=== PATIENT | male | born 1955 | race Caucasian/White ===

== ENCOUNTER → 2018-04-22 12:36 | Outpatient (CLI) | payer MEDICARE ==
[~2018-04-22] VITALS: Ht 170.2 cm; Wt 165.1 kg
[2018-04-22 14:40] VITALS: Ht 170.2 cm; Wt 165.1 kg
== END | disposition home or self-care (01) ==
LOC: D.FANS 12:36
DX: E11.65 Type 2 diabetes mellitus with hyperglycemia (principal)

== ENCOUNTER 2019-04-14 21:00 | Observation (INO) | payer MEDICARE ==
[~2019-04-14] VITALS: Ht 170.2 cm; Wt 163.6 kg
--- NOTE | ~2019-04-14 | ST ---
PATIENT:NICOLAS BRICE MEDICAL RECORD: [id number] SEX: M LOCATION:D. D.211 ORDER #: ADMISSION DATE: 04/14/19 AGE OF PATIENT: 63 REFERRING PHYSICIAN: INTERPRETING PHYSICIAN: JONATHAN BALES MD DATE OF SERVICE: 04/15/2019 PROCEDURE: Nuclear stress test. INDICATION: Angina and coronary artery disease, shortness of breath, dyspnea on exertion. He was exercised on standard Lexiscan protocol with 28 mCi of sestamibi injected at peak stress, 9 mCi used previously for rest images. FINDINGS: Gated SPECT reveals preserved ejection fraction at 61% with good wall motion and thickening and brightening throughout all segments. SPECT imaging Cardiolite was used as myocardial fusion agent. There is homogeneous uptake throughout all segments at rest and stress with no evidence of inducible ischemia or previous infarction. OVERALL IMPRESSION: 1. This is a normal nuclear stress test with no evidence of inducible ischemia or previous infarction. 2. Gated SPECT reveals a preserved ejection fraction at 61%. In this patient with ongoing symptomatology, the current scan does not suggest the presence of hemodynamically significant coronary artery disease. Evaluate noncardiac etiology of chest pain. TRANSINT:[id number] Voice Confirmation ID: [id number] DOCUMENT ID: [id number] JONATHAN BALES MD CC: [id number] DICTATION DATE: 04/15/19 1712 COTTON AGENT: 04/16/19 0001 ADM IN [place] [id number] [place] [id number]
--- NOTE | ~2019-04-14 | EC ---
PATIENT:NICOLAS BRICE DATE OF SERVICE: 04/14/19 SEX: M MEDICAL RECORD: [id number] DATE OF : 55 LOCATION:D.M2 D.211 AGE OF PATIENT: 63 ADMISSION DATE: 04/14/19 REFERRING PHYSICIAN: INTERPRETING PHYSICIAN: JONATHAN HOPSON MD ECHOCARDIOGRAM REPORT ECHO CHARGES 4 ECHO COMPLETE Date: 04/15/19 CLINICAL DIAGNOSIS: CARDIOMEGALY ECHOCARDIOGRAPHIC MEASUREMENTS (adult normal given) AC root (d.<3.7cm) 2.6 cm LV Septum d (<1.2 cm> 1.4 cm Valve Excursion 2.0 cm LV Septum (systole) 1.6 cm Left Atria (s.<4.0cm> 4.5 cm LVPW d(<1.2cm) 1.3 cm RV (d.<2.3cm) cm LVPW (sytole) 1.4 cm LV diastole(<5.6CM) 5.1 cm MV E-F(>70mm/sec) cm LV systole 3.8 cm LVOT Diameter 1.8 cm MV exc.(>10mm) cm Est.ejection fraction (50-75%) % DOPPLER: LVIT cm/sec A cm/sec E cm/sec LA cm/sec RVSP 17.7 mmHg LVOT cm/sec AOP1/2T m/s Asc. Ao cm/sec RVOT 80 cm/sec RA cm/sec PA 90 cm/sec AV Gradient Peak mmHg AV Mean mmHg AV Area cm MV Gradient Peak mmHg MV Mean mmHg MV Area cm COMMENTS: Baseball Glove Stuffer: Laura AKINS Transitional Care Liaison: Stiven Hopson TAPE# PACS Pericardial Effusion N DATE OF SERVICE: 04/15/2019 PROCEDURE: Echocardiogram. FINDINGS: 1. Left ventricular chamber size is within normal limits. Left ventricular systolic function is normal. Overall ejection fraction estimated at 55%. 2. Left atrium is enlarged at 4.5 cm. Right atrium and right ventricular chamber sizes are within normal limits. 3. Valvular structures have normal structure and motion. ECHOCARDIOGRAM REPORT [id number] NICOLAS BRCIE 4. Doppler interrogation reveals no significant valvular insufficiency or stenosis. 5. No evidence of pericardial effusion or left ventricular thrombus. TRANSINT:[id number] Voice Confirmation ID: [id number] DOCUMENT ID: [id number] JONATHAN HOPSON MD CC: [id number] DICTATION DATE: 04/15/19 1314 FISHERY BIOLOGIST: 04/15/19 1323 [facility]M [facility] [address] [facility] [address] [place], [facility]
[2019-04-14] MEDS ORDERED: ZOCOR10 MG PO (21:09)
[2019-04-14] MEDS ORDERED: COZAAR25 MG PO (21:09)
[2019-04-14] MEDS ORDERED: TENORMIN25 MG PO (21:09)
[2019-04-14] MEDS ORDERED: ASPIRIN81 MG PO (21:09)
[2019-04-14] MEDS ORDERED: NOVOLIN 70/30 110 ML SC (21:10)
[2019-04-14] MEDS ORDERED: PAIN MEDICINE (21:10)
[2019-04-14 21:31] VITALS: BP 145/60
[2019-04-14 21:31] LABS: BASOPHILS 0 % (0-2); EOSINOPHILS 1.5 % (0-7); HEMATOCRIT 44.9 % (42.0-54.0); HEMOGLOBIN 15.3 g/dL (13.5-17.5); IMMATURE GRANULOCYTES 0.3 % (0-5); LYMPHOCYTES 35.9 % (15-50); MCH 32.4 pg (26.0-34.0); MCHC 34.1 g/dL (31.0-37.0); MCV 95.1 fL (80.0-100.0); MEAN PLATELET VOLUME 10.3 fL (7.4-10.4); MONOCYTES 8.1 % (2-11); NEUTROPHILS 54.2 % (40-80); RBC 4.72 10x6/uL (4.20-6.10); RDW 13.6 % (11.5-14.5)
[2019-04-14 21:40] LABS: PLATELET COUNT 202 10x3/uL (130-400)
[2019-04-14 21:44] LABS: INR 0.93 (0.85-1.17)
[2019-04-14 21:45] LABS: APTT 27.2 SECONDS (22.8-39.4)
--- NOTE | 2019-04-14 21:45 | NUR ---
BLANKET PROVIDED FOR PT COMFORT AT THIS TIME. FAMILY AT BEDSIDE. RESPIRATIONS EVEN, NO LONGER USING ACCESSORY MUSCLES. 02 AT 3L PER NC, SAT 97%.
[2019-04-14 22:00] VITALS: BP 132/49
[2019-04-14 22:00] LABS: ALBUMIN 3.2 g/dL (3.4-5.0); ALKALINE PHOSPHATASE 60 U/L (46-116); ALT (SGPT) 26 U/L (10-68); BILIRUBIN - TOTAL 0.65 mg/dL (0.2-1.3); CALC OSMOLALITY 278 mosm/kg (275-300); CARBON DIOXIDE 35.1 mmol/L (21.0-32.0); CHLORIDE - SERUM 100 mmol/L (98-107); CREATININE - SERUM 1.1 mg/dL (0.6-1.3); GLUCOSE 114 mg/dL (74-106); POTASSIUM - SERUM 3.8 mmol/L (3.5-5.1); PROTEIN - SERUM 6.9 g/dL (6.4-8.2); SODIUM 139 mmol/L (136-145); UREA NITROGEN 13 mg/dL (7-18); eGFR NON AFRICAN AMERICAN 72 mL/min (90-120)
[2019-04-14 22:10] LABS: CKMB 3.8 U/L (0.0-3.6); CREATINE KINASE 401 UL (21-232); MAGNESIUM - SERUM 1.8 mg/dL (1.8-2.4); TROPONIN-I < 0.017 ng/mL (0.000-0.060)
--- NOTE | 2019-04-14 22:20 | NUR ---
PT SITTING UP IN BED WITH EYES OPEN, TV ON, FAMILY AT BEDSIDE. RESPIRATIONS EVEN AND UNLABORED. 3L O2 PER NC, O2 SAT 98%. DENIES PAIN OR NEEDS AT THIS TIME.
[2019-04-14 22:30] VITALS: BP 142/43
[2019-04-14 23:30] VITALS: BP 131/39
[2019-04-15] MEDS ORDERED: NOVOLIN 70/30 110 ML SC (00:46)
[2019-04-15] MEDS ORDERED: BASAGLAR K100 UNIT/1 SC (00:47)
[2019-04-15] MEDS ORDERED: TENORMIN50 MG PO (00:48)
[2019-04-15] MEDS ORDERED: PROTONIX40 MG PO (00:49)
[2019-04-15] MEDS ORDERED: METAMUCIL PACKE1 PKT PO (00:50)
[2019-04-15] MEDS ORDERED: COLACE100 MG PO (00:50)
[2019-04-15] MEDS ORDERED: DILAUDID4 MG PO (00:51)
[2019-04-15] MEDS ORDERED: LASIX40 MG PO (00:53)
[2019-04-15] MEDS ORDERED: ALBUTEROL SULF8.5 GM INH (00:54)
[2019-04-15 01:05] VITALS: BP 117/60
[2019-04-15 02:25] VITALS: BP 117/60; Ht 170.2 cm; Wt 163.6 kg
[2019-04-15 05:36] VITALS: BP 112/57
[2019-04-15 06:33] LABS: BASOPHILS 0.1 % (0-2); EOSINOPHILS 1.2 % (0-7); IMMATURE GRANULOCYTES 0.2 % (0-5); LYMPHOCYTES 25.3 % (15-50); MCH 31.7 pg (26.0-34.0); MCHC 32.6 g/dL (31.0-37.0); MEAN PLATELET VOLUME 10.5 fL (7.4-10.4); MONOCYTES 15.4 % (2-11); NEUTROPHILS 57.8 % (40-80); PLATELET COUNT 204 10x3/uL (130-400); RBC 4.41 10x6/uL (4.20-6.10); RDW 13.8 % (11.5-14.5); WBC 9.8 10x3/uL (4.8-10.8)
[2019-04-15 06:34] LABS: MCV 97.5 fL (80.0-100.0)
[2019-04-15 07:08] LABS: CALCIUM 8.6 mg/dL (8.5-10.1); CARBON DIOXIDE 35.3 mmol/L (21.0-32.0); CHLORIDE - SERUM 103 mmol/L (98-107); PHOSPHOROUS 6.5 mg/dL (2.5-4.9); POTASSIUM - SERUM 3.9 mmol/L (3.5-5.1); SODIUM 140 mmol/L (136-145); UREA NITROGEN 13 mg/dL (7-18); eGFR NON AFRICAN AMERICAN 80 mL/min (90-120)
[2019-04-15 07:11] LABS: CALC OSMOLALITY 276 mosm/kg (275-300); TROPONIN-I < 0.017 ng/mL (0.000-0.060)
--- NOTE | 2019-04-15 07:39 | NUR ---
GLUCOSE 59. OJ GIVEN. WILL MONITOR.
[2019-04-15 08:00] VITALS: BP 134/49
[2019-04-15] MEDS ORDERED: HUMULIN R100 U/ML SQ (09:35)
[2019-04-15 11:37] VITALS: BP 106/52
--- NOTE | 2019-04-15 13:12 | NUR ---
LEAVING TO NM BY W/C FOR STRESS TEST.
--- NOTE | 2019-04-15 16:00 | NUR ---
LEAVING FOR NM FOR 2ND HALF STRESS TEST.
--- NOTE | 2019-04-15 19:27 | NUR ---
RECEIVED BEDSIDE REPORT. PATIENT IS ALERT AND ORIENTED, SITTING IN HIS WHEELCHAIR. RESPIRATIONS ARE EVEN AND UNLABORED. NO S/S OF DISTRESS. NO C/O PAIN. VISITORS AT BEDSIDE. DENIES NEEDS. CALL LIGHT WITHIN REACH. WILL CPOC.
[2019-04-15 20:00] VITALS: BP 133/55
[2019-04-16] VITALS: BP 121/51
[2019-04-16 04:00] VITALS: BP 189/54
[2019-04-16 04:46] LABS: ANION GAP 8.4 mmol/L (8-16); CALCIUM 8.5 mg/dL (8.5-10.1); CARBON DIOXIDE 36.5 mmol/L (21.0-32.0); CREATININE - SERUM 1.1 mg/dL (0.6-1.3)
[2019-04-16 04:54] LABS: POTASSIUM - SERUM 4.9 mmol/L (3.5-5.1)
[2019-04-16 09:17] VITALS: BP 134/45
[2019-04-16 12:22] VITALS: BP 133/55
--- NOTE | 2019-04-16 12:23 | HP ---
PATIENT: NICOLAS BRICE MEDICAL RECORD: [id number] ACCOUNT: [id number] LOCATION:[address] : 55 ADMISSION DATE: 04/14/19 PCP: DAVID OWEN DO HISTORY AND PHYSICAL EXAMINATION DIAGNOSES: 1. Unstable angina class IV. 2. Shortness of breath, dyspnea on exertion. 3. Coronary artery disease. 4. Status post coronary bypass graft surgery in 2011. 5. Hypertension. 6. Hyperlipidemia. 7. Chronic obstructive pulmonary disease. 8. Obesity. 9. Insulin-dependent diabetes. HISTORY OF PRESENT ILLNESS: This is a 63-year-old gentleman with a past history of coronary artery disease, status post coronary artery bypass graft surgery 7 years ago. For 2 weeks, he has had increasing chest pressure as well as shortness of breath. He presents with severe worsening chest discomfort at rest like that of his previous angina prior to the bypass surgery. Shortness of breath is very significant as well. He cannot even walk across the room without being extremely short of breath. He has a history of COPD as well for which he is on an inhaler. This is not changed. He has not had a productive cough or fever. He has history of hypertension for which he is on atenolol and losartan. Hyperlipidemia, on Zocor. He is an insulin-dependent diabetic. PHYSICAL EXAMINATION: GENERAL APPEARANCE: Well-nourished, well-developed, appears stated age. Level of distress, comfortable. PSYCHIATRIC: Mental status, alert, normal affect. Orientation, oriented to time, place and person. EYES: Lids and conjunctiva, noninjected. No discharge, no pallor. ENT: Lips, teeth, gums, normal dentition. Oropharynx, no cyanosis, no pallor. NECK: Carotid arteries, bilateral normal upstroke, no bruits, no thrills. JUGULAR VEINS: No jugular venous pressure or distention. CERVICAL LYMPH NODES: Nontender, nonenlarged. THYROID: Not enlarged. Nontender. No nodules. LUNGS: Respiratory effort, unlabored. CHEST: Normal curvature. No thoracic deformity. No chest wall tenderness. Percussion, resonant. Auscultation, clear. No wheezes, no rales, no rhonchi. CARDIOVASCULAR: Precordial exam, nondisplaced. No heaves or pericardial thrills. Rate and rhythm, regular. Heart sounds, normal S1, normal S2. No S3, no gallop, no rub. Systolic murmur, not heard. Diastolic murmur, not heard. EXTREMITIES: No cyanosis, no edema. Peripheral pulses, full and equal in all extremities, except as noted. No bruits appreciated. ABDOMEN: Soft, nondistended. Normal aorta. No bruit. Nontender. No masses. Liver, nontender, no hepatomegaly. Spleen, nontender, no splenomegaly. MUSCULOSKELETAL: No joint tenderness. No joint swelling. No erythema. NEUROLOGICAL: Normal gait, normal strength, normal tone. SKIN: Warm and dry. OVERALL IMPRESSION: 1. Class IV anginal symptomatology. No acute changes on his EKG. Troponin is normal. We will risk stratify with stress testing, Cardiolite imaging. HISTORY AND PHYSICAL [id number] NICOLAS BRICE 2. Shortness of breath, dyspnea on exertion. We will get an echocardiogram to evaluate his overall LV function. We will give him Lasix. As he has crackles on exam even though chest x-ray did not show overt pulmonary edema, this is most likely contributing to his shortness of breath and dyspnea on exertion. Further care depends upon findings of these studies. TRANSINT:[id number] Voice Confirmation ID: [id number] DOCUMENT ID: [id number] JONATHAN BALES MD at 1223 CC: [id number] DICTATION DATE: 04/15/19823 ASTRONOMY DEPARTMENT CHAIR: 04/15/19 0849 ADM IN [facility] [address] [place] [id number]
--- NOTE | 2019-04-16 12:43 | NUR ---
PER PATIENT REQUEST, I CALLED HIS JOSE AND JULIETTE TO [facility]. SPOKE WITH CHIOMA-TRE.
[2019-04-16] MEDS ORDERED: LASIX40 MG PO (12:50)
[2019-04-16] MEDS ORDERED: K-TAB10 MEQ PO (12:51)
--- NOTE | 2019-04-16 13:30 | NUR ---
IV AND TELEMETRY DCD. DC PLANS GIVEN. UNDERSTANDING VOICED. LEAVING HOSP WITH BY W/C.
--- NOTE | 2019-04-16 18:45 | MORECARE ---
CASE MANAGEMENT DISCHARGE SUMMARY PATIENT: NICOLAS BRICE UNIT: [id number] ADM DATE: 04/14/19 AGE: 63 : 55 SEX: M ROOM/BED: D.2118 AUTHOR: THOMAS KNAPP PHYSICIAN: REFERRING PHYSICIAN: JONATHAN BALES MD DATE OF SERVICE: 04/16/19 Discharge Plan Patient Name: NICOLAS BRICE [facility] [facility] 1955 Planned Disposition: Home Anticipated Discharge Date: 04/16/19 Discharge Date: 04/16/2019 Expected LOS: 2 Initial Reviewer: [email or web address] Initial Review Date: 04/15/2019 Generated: 04/16/19 7:44 pm Patient Name: NICOLAS BRICE Page [id number] at 1845 All edits/amendments must be made on the electronic document DICTATION DATE: 04/16/191843 GEOPHYSICAL SUPPORT SPECIALIST: BREANNA 04/16/191843 RPT#: [id number] DC DATE:04/16/19 STATUS: DIS IN [facility] [address] [place] [address] END OF REPORT
== END 2019-04-16 13:31 | disposition home or self-care (01) ==
LOC: D.ER 21:00 → D.M2 23:36 → OBSVTIME 23:36 → D.M2 23:36
PROVIDERS: Family Medicine; ADMIT Internal Medicine Interventional Cardiology; ATTEND Internal Medicine Interventional Cardiology
DX: I25.110 Atherosclerotic heart disease of native coronary artery with unstable angina pectoris (principal); Z95.1 Presence of aortocoronary bypass graft; I10 Essential (primary) hypertension; E78.5 Hyperlipidemia, unspecified; J44.9 Chronic obstructive pulmonary disease, unspecified; E11.9 Type 2 diabetes mellitus without complications; Z79.4 Long term (current) use of insulin; E66.9 Obesity, unspecified

== ENCOUNTER → 2019-07-09 16:47 | Outpatient (CLI) | payer MEDICARE ==
[2019-04-15 02:25] VITALS: BMI 56.5
[~2019-07-09 16:47] MED LIST: ALBUTEROL SULF8.5 GM INH; ASPIRIN81 MG PO; BASAGLAR K100 UNIT/1 SC; COLACE100 MG PO; COZAAR25 MG PO; DILAUDID4 MG PO; HUMULIN R100 U/ML SQ; K-TAB10 MEQ PO; LASIX40 MG PO; METAMUCIL PACKE1 PKT PO; NOVOLIN 70/30 110 ML SC; PAIN MEDICINE; PROTONIX40 MG PO; TENORMIN25 MG PO; TENORMIN50 MG PO; ZOCOR10 MG PO
[2019-07-09 17:46] LABS: LDL-HDL RATIO 1.6 ratio (1.5-3.5)
== END | disposition home or self-care (01) ==
LOC: D.LABREF 16:47
PROVIDERS: ATTEND Internal Medicine Interventional Cardiology
DX: I25.10 Atherosclerotic heart disease of native coronary artery without angina pectoris (principal)